=== PATIENT | male | born 1940 | race Caucasian/White ===

== ENCOUNTER 2022-05-30 14:56 | Outpatient (CLI) | payer MEDICARE, MEDICAID, OTHER ==
[~2022-05-30 14:56] MED LIST: ASPI-1265 PO; ATOR80TA PO; BENA10TA74 PO; CARV3.122 PO; CLOP75TA34 PO; CYAN-51 PO; DULO20CA50 PO; GABA300C PO; HYDR25TA5 PO; LANTUS SQ; MULT-1085 PO; MV-M1TAB19 PO; OMEG1CAP2 PO; PIOG15TA8 PO
== END 2022-05-30 23:59 | disposition home or self-care (01) ==
LOC: RAD 14:56
PROVIDERS: ATTEND Internal Medicine Cardiovascular Disease
DX: I08.8 Other rheumatic multiple valve diseases (principal); I25.10 Atherosclerotic heart disease of native coronary artery without angina pectoris
CPT/HCPCS: 93306

== ENCOUNTER 2025-02-15 08:53 | Inpatient (IN) | payer MEDICARE, MEDICAID ==
[~2025-02-15] VITALS: Ht 188 cm; Wt 93.0 kg
[~2025-02-15 08:53] MED LIST changes: +ATOR-429 PO; -ATOR80TA PO; +CYAN-104 PO; -CYAN-51 PO
--- NOTE | 2025-02-15 09:21 | ELECTROCARDIOGRAPH REPORT ---
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 CHRISTOPHER Yousif Measurements Intervals [place] Rate: 70 P: 259 WA: 217 QRS: 62 QRSD: 103 T: 83 QT: 438 QTc: 473 Interpretive Statements Sinus or ectopic atrial rhythm Supraventricular bigeminy Borderline prolonged WA interval Consider inferior infarct Electronically Signed On 02-17-2025 18:05:[address] CHRISTOPHER Yousif Please click the below link to view image of tracing.
[2025-02-15 09:34] LABS: MEAN PLATELET VOLUME 8.7 FL (7.4-10.4); RED CELL DISTRIBUTION WIDTH 16.1 % (11.5-14.5)
[2025-02-15 09:51] LABS: CREATININE 1.68 MG/DL (0.60-1.10); PRO BRAIN NATRIURETIC PEPTIDE 211 PG/ML (0-450); TOTAL CARBON DIOXIDE 32.2 MMOL/L (24-32); eCRCL 38 ML/MIN; eGFR 39 ML/MIN
--- NOTE | 2025-02-15 09:51 | RADIOLOGY REPORT ---
DI CHEST,SINGLE VIEW, HISTORY: CP COMPARISON: None None TECHNICAL DATA: 1 view of the chest was obtained. FINDINGS: Lines and tubes: None Cardiomediastinal silhouette: normal Pulmonary vasculature: normal Lung expansion: normal Lung airspace: Mild left peripheral patchy airspace opacity, nonspecific. Lung interstitium: normal Pleura: normal Pneumothorax: no Bones: Unremarkable Other: no IMPRESSION: Mild left peripheral patchy airspace opacity, nonspecific.
--- NOTE | 2025-02-15 10:01 | Physician Documentation ---
Addendum CHIEF COMPLAINT/HPI: The patient is an 84-year-old male who resides at the [facility] with a history of diabetes, hypertension, hyperlipidemia, CAD (prior stenting) and carotid disease . He is an insulin-dependent diabetic (I take 45 units of insulin in the morning and 15 units at night.). This morning, he was found on the floor with a glucose level of 30. He was given sugar and recovered quickly. He did strike his head. He takes Plavix but no other blood thinners. Patient reports that his glucose levels were running high and he adjusted his morning insulin on February 07 from 40 units to 45 units. REVIEW OF SYSTEMS: Constitutional: Denies chills, fatigue, fever, weight gain or weight loss. HEENT: Denies hearing loss, sinus pressure or visual changes. Respiratory: Denies cough, shortness of breath or wheezing. Cardiovascular: Denies chest pain, pain while walking (claudication), edema or palpitations. Gastrointestinal: Denies abdominal pain, blood in stool, constipation, diarrhea, heartburn, loss of appetite, nausea or vomiting. Genitourinary: Denies painful urination (dysuria), excessive amount of urine (polyuria) or urinary frequency. Metabolic/Endocrine: Denies cold intolerance, heat intolerance, excessive thirst (polydipsia) or excessive hunger (polyphagia). Neurological: Denies dizziness, extremity numbness, extremity weakness, headaches, seizures or tremors. Psychiatric: Denies anxiety or depression. Integumentary: Denies breast discharge, breast lump, hives, mole change(s), rash or skin lesion. Musculoskeletal: Denies back pain, joint pain, joint swelling or neck pain. Hematologic: Denies easily bleeding, easily bruises, lymphedema or issues with blood clots. Immunologic: Denies food allergies or seasonal allergies. PHYSICAL EXAMINATION: Vitals and nursing note reviewed. Constitutional: General: Patient is awake, alert, oriented x 4 in no acute distress and well appearing. Speech is clear and lucid. Appearance: Normal appearance. Patient is not ill-appearing, toxic-appearing or diaphoretic. HENT: Head: Normocephalic, abrasion to forehead right of center. Mouth: Mucous membranes are moist. Pharynx: Oropharynx is clear. Eyes: General: No scleral icterus. Extraocular Movements: Extraocular movements intact. Pupils: Pupils are equal, round, and reactive to light. Neck: Supple, no Kernig or Brudzinski sign. Cardiovascular: Rate and Rhythm: Normal rate and regular rhythm. Heart sounds: No murmur heard. Pulmonary: Effort: No respiratory distress. Breath sounds: No wheezing, rhonchi or rales. Abdominal: General: There is no distension. Palpations: There is no fluid wave, hepatomegaly or mass. Tenderness: There is no abdominal tenderness. There is no guarding. Musculoskeletal: General: No swelling or deformity. Skin: Coloration: Skin is not jaundiced. Findings: No erythema or rash. Neurological: Mental Status: Patient is alert. MEDICAL DECISION MAKING: This 84-year-old man adjusted his insulin nine days ago and became hypoglycemic this morning and sustained a ground level fall. CT scan of the head is negative for acute findings. CT scan of the chest indicates the possibility of a lung laceration. I discussed this with our surgeon on-call, Dr. Peterson, at 12:05 p.m. He indicated that these findings were clinically irrelevant if the patient does not have a hemothorax or pneumothorax. The patient's troponins are rising. I will get the patient admitted for his NSTEMI. Departure Disposition: ADMITTED INPATIENT Admitted to Inpatient Unit: to hospitalist Impression: Primary Impression: NSTEMI (non-ST elevated myocardial infarction) Additional Impressions: Hypoglycemia Ground-level fall Condition: Stable AMBROCIO BRYANT MD Feb 15, 2025 10:01
--- NOTE | 2025-02-15 11:11 | RADIOLOGY REPORT ---
CLINICAL INFORMATION: 84 years old, Male; Trauma. TECHNIQUE: Axial imaging was obtained through the brain without contrast. Coronal and sagittal reformatted images were obtained, reviewed, and stored. Images were reviewed in brain and bone windows. All CT scans at this medical facility are performed using dose modulation techniques as appropriate to a performed exam including the following: Automated exposure control was utilized; adjustment of the MA and/or KV according to patient size; and use of iterative reconstruction technique. CTDIvol = 65.96 mGy DLP = 1208.54 mGy-cm COMPARISON: None FINDINGS: There is no acute intracranial hemorrhage. No mass effect or midline shift. The ventricles and sulci are within normal limits in size for age. Basal cisterns are patent. The calvarium is unremarkable. Small fluid level in the left maxillary sinus. Mastoid air cells are clear. IMPRESSION: No CT evidence of acute intracranial abnormality.
--- NOTE | 2025-02-15 11:41 | RADIOLOGY REPORT ---
CLINICAL INFORMATION: Fall injury. TECHNIQUE: Axial CT imaging of the chest was performed without IV contrast. Sagittal and coronal reformatted images were made, stored and reviewed. Evaluation is limited without IV contrast. One or more of the following dose reduction techniques were used: Automated exposure control. Adjustment of mA and/or kV according to patient size. CTDIvol = 14.28, 14.83, 0.14 mGy DLP = 772.2 mGy-cm COMPARISON: Same day chest radiograph. FINDINGS: Aorta: Moderate atherosclerotic calcification. No thoracic aortic aneurysm. Cardiac: Heart size is within normal limits. Dense coronary artery calcification. Trace pericardial fluid. Mediastinum/albin: Nonspecific circumferential thickening of the wall of the distal esophagus. There is gas visualized within the lumen of the thoracic esophagus. Lungs: Ground-glass opacities are seen bilaterally, most prominent involving the upper lobes, left lingula, and right middle lobe, may be contusions in the setting of trauma. Possible small laceration along the lateral aspect of the left upper lobe adjacent to the left anterolateral 4th rib (series 2, image 44) with associated locules of gas. Small area of ground-glass attenuation in the anterior aspect of the left lower lobe. Pulmonary arteries: No gross abnormality. Chest wall: No mass or other abnormality. Upper abdomen: Visualized structures in the upper abdomen are unremarkable. Bones: No acute fracture or suspicious intraosseous lesions. IMPRESSION: 1. Bilateral ground-glass opacities, possible contusions in the setting of trauma. Correlate with clinical findings. Infectious or inflammatory etiology could also have a similar appearance in the appropriate clinical setting. 2. Suspected pulmonary laceration in the left upper lobe adjacent to the left anterolateral 4th rib. 3. Additional nonacute findings as described above.
--- NOTE | 2025-02-15 11:41 | RADIOLOGY REPORT ---
CLINICAL HISTORY: Trauma TECHNIQUE: CT exam of the cervical spine was performed without intravenous contrast. This exam was performed according to our departmental dose optimization program. Up-to-date CT equipment and radiation dose reduction techniques are utilized as appropriate. CTDI: 20.31 DLP: 541.08 WID: COMPARISON: None FINDINGS: Straightening of the cervical lordosis. Grade 1 anterolisthesis at C2-C3. There is otherwise normal cervical alignment. The vertebral body heights are maintained. No acute cervical fracture or subluxation is identified. There is multilevel mild cervical spondylosis with multilevel osteophyte formation. There is multilevel facet and uncovertebral hypertrophy, though without high-grade neural foraminal stenosis. No high-grade spinal stenosis. No significant central or neural foraminal narrowing is identified. The posterior paraspinous soft tissues are unremarkable. The lung apices are clear. Biapical pleural-parenchymal scarring. There is centrilobular emphysema in the lung apices. Calcified plaque in the bilateral carotid bifurcations, greater on the right. IMPRESSION: 1. No acute fracture or traumatic malalignment. 2. No high-grade neural foraminal or spinal stenosis. 3. Centrilobular emphysema in the lung apices.
[2025-02-15] MEDS ORDERED: potassium Cl 20 mEq SR tablet PO PRN ×2 (13:10)
[2025-02-15] MEDS ORDERED: magnesium sulf-water 4G/100mL 100 ML IV PRN (13:10)
[2025-02-15] MEDS ORDERED: HYDROcodone/acetaminophen 10/325mg tab PO PRN (13:10)
[2025-02-15] MEDS ORDERED: magnesium Cl slow-release 64mg tablet PO PRN (13:10)
[2025-02-15] MEDS ORDERED: mag hydrox/Alum hydrox/simeth 30ml oral suspension PO PRN (13:10)
[2025-02-15] MEDS ORDERED: potassium Cl 40MEQ/1/2NS 520ml 520 ML IV PRN (13:10)
[2025-02-15] MEDS ORDERED: magnesium hydroxide 30ml (MOM) UD suspension PO PRN (13:10)
[2025-02-15] MEDS ORDERED: magnesium sulf-water 2g/50mL 50 ML IV PRN (13:10)
[2025-02-15] MEDS ORDERED: ondansetron/PF 4mg/2ml inj IV PRN (13:10)
[2025-02-15] MEDS ORDERED: DEXTROSE 15 GM of carb/4 tabs (each vial/BOTTLE has 4 tablets) PO PRN ×2 (14:40)
[2025-02-15] MEDS ORDERED: dextrose 50%-water 50ml dispensing syringe IV PRN ×2 (14:40)
[2025-02-15] MEDS ORDERED: glucagon, human recombinant 1mg kit SUBCUT PRN (14:40)
--- NOTE | 2025-02-15 14:49 | HISTORY AND PHYSICAL-Residence ---
History & Physical Providers to CC Resident Creating Document: THOMASSONALAncaGEN, STEVO ~ History of Present Illness Reason for Admit\Complaint: Hypoglycemia History of Present Illness This is an 84-year-old male residing at the [facility] ,with past medical history of type 2 diabetes mellitus, hypertension, hyperlipidemia, CAD s/p stent placement in 2019 presented to the ED with low glucose levels. Patient reports that he has a glucose monitor that checks his glucose levels, it went off this morning at around 6:30 a.m. patient then immediately had a bowl of cereal with milk and a glass of apple juice. Patient reports that he does not remember what happened afterwards, the next thing he remembers when he gained back his consciousness he was in the ED. Patient says that he recently got his insulin dose adjusted by his PCP 2 weeks ago, was taking long-lasting insulin 40 units at 6:00 a.m. and 15 units in the evening and recently changed it to 45 units at 6:00 a.m. According to the ER physician, patient had a ground level fall this morning, hit his head, and was found on the floor with a glucose level of 30. He was given sugar and recovered quickly. Patient says the this is the 1st episode he has ever experienced of this kind. Patient reports taking Plavix but no other blood thinners. He denies any other complaints of chest pain, shortness of breath, palpitations, dizziness, nausea vomiting, abdominal pain, burning micturition. Allergies: Coded Allergies: No Known Allergies (Unverified , 11/19/19) Home Medications Home Medications Active Aspirin 81 Mg Tab.chew 162 Mg PO DAILY 90 Days Clopidogrel (Clopidogrel Bisulfate) 75 Mg Tablet 75 Mg PO DAILY 90 Days Do not stop medication unless instructed by prescriber. Reported Cymbalta* (Duloxetine HCl) 20 Mg Capsule. 1 Cap PO DAILY Lantus* (Insulin Glargine) 100 Unit/1 Ml Vial 20 Units SQ HS Fish Oil 1,000 mg Capsule ([place]-3 Fatty Acids/Fish Oil) 1 Each Capsule 1 Cap PO DAILY Carvedilol 3.125 Mg Tablet 1 Tab PO Q12H Lotensin* (Benazepril HCl) 10 Mg Tablet 1 Tab PO DAILY Hydrochlorothiazide 25 Mg Tab 1 Tab PO DAILY Lipitor* (Atorvastatin Calcium) 80 Mg Tablet 1 Tablet PO HS Actos* (Pioglitazone HCl) 15 Mg Tablet 1 Tab PO DAILY Neurontin (Gabapentin) 300 Mg Capsule 2 Cap PO Q8H Multi Vitamin Daily (Multivitamin) 1 Each Tablet 1 Tab PO DAILY Vitamin D3 Complete Caplet (Mv-Mn/Iron/Fa/Herbal Cmplx#190) 1 Each Tablet 1 Each PO DAILY Vitamin B-12 (Cyanocobalamin) 1,000 Mcg Tablet 1 Tab PO DAILY Past Medical History Past Medical History Hypertension Type 2 diabetes mellitus Hyperlipidemia Past Surgical History Surgical History Comment Coronary artery disease s/p stent placement in 2019 Peripheral artery disease s/p stent placement in lower extremities. Past Social History Social History Comment Patient quit smoking in 2000. 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 ROS ROS Constitutional: No fever, dizziness, no weakness, no decrease in appetite HEENT: Normal vision. No sore throat, epistaxis, tinnitus Cardiovascular: No chest pain/discomfort, palpitations, syncope. no pedal edema Respiratory: No shortness of breath, no cough, no hemoptysis Gastrointestinal: No abdominal pain, nausea, vomiting. No diarrhea, melena. Genitourinary: No frquency, urgency, incontinence, nocturia. No dysuria, hematuria Endocrine: No fatigue, polydipsia, polyuria. No heat or cold intolerance Neurologic: No headache, vertigo. No weakness, numbness or tingling of extremities Psychiatric: No hallucinations/delusions, no anhedonia, no suicidal ideation Exam Vitals: Vital Signs Date Time Temp Pulse Resp B/P (MAP) Pulse Ox O2 Delivery O2 Flow Rate FiO2 02/15/25 13:33 95.5 71 19 175/62 (99) 90 General: General: Awake, alert, oriented to time , place, person HEENT: Laceration present on the right side of the forehead, normocephalic, pupils equal, extraocular muscles intact, sclerae anicteric,mucus membranes dry, oropharynx is clear, no stridor. Neck: supple, full active range of motion, trachea midline, no thyromegaly, no lymphadenopathy, no JVD. Cardiovascular system: regular rate/rhythm. No murmurs, gallops. Pulses are 2+ in all extremities and symmetric. Chest/respiratory system: Nonlabored, good air movement ,no respiratory distress, clear to auscultation bilaterally, no wheezing, no ronchi, no rales, no accessory muscle use. Gastrointestinal: Soft, non-tender, non-distended, normal active bowel sounds, no organomegaly, no pulsatile masses, no CVA tenderness. Neurological: Lucid with normal mental status. Normal facial symmetry. Moves all extremities symmetrically and with purpose. No truncal ataxia. Speech is fluid without evidence of dysarthria or aphasia, no focal deficits appreciated. Extremities: warm, well-perfused, no cyanosis, no clubbing. Skin: warm, dry, no rashes, laceration present on the left forearm and right forehead Psychiatric: Normal affect, normal insight, normal concentration Diagnostic Data Last Recorded Lab Results: 02/15/2592102/15/25921 Advance Care Planning Advanced Care plannin - 30 Minutes (full code) Additional Plan Syncope Due to Acute hypoglycemia Patient had ground level mechanical fall, lost consciousness. CT head - No CT evidence of acute intracranial abnormality. Initial blood sugar levels- 30, sugar levels on arrival to the ED 102. HbA1c - 8.6 Electrolytes normal Hypoglycemia/hyperglycemia protocol in place. Patient started on low-dose sliding scale. Type 2 AR Likely due to underlying hypoglycemia Patient has increased troponins of 155, 451, 488 BNP ordered follow up. Patient denies any complaints of chest pain, palpitations, headache. EKG shows sinus rhythm with no acute ST elevation, depression, T-wave changes. 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 BERTO on chronic kidney disease stage III Likely due to dehydration Patient's baseline creatinine- 1.39 Currently creatinine is- 1.68, BUN-33 Patient on NS 75 cc/hour. Urine lytes ordered. We will follow-up Hypertension- Current blood pressures- 175/62 We will continue blood pressure medications once med rec is done. Hyperlipidemia- Lipid panel ordered. Follow-up Started patient on atorvastatin 80 mg CAD s/p stent placement in 2019- Patient had [address] Yousif. Currently on Plavix Code Status: Full code DVT Prophylaxis: Plavix Lines/Tubes: PIV Nutrition: Regular PT:yes Prognosis: Guarded Resident MD attestation- Patient was seen, examined and discussed with the attending MD . Gen Ceron PGY-1 Date of Service: Feb 15, 2025 Billing Provider: ADRIAN SELLERS MD Common Visit Codes: 14283-UEOSBBR INP/OBS CARE (HIGH) Secondary Visit Codes: 51070-LQSOTUPR CARE PLAN 30 MINUTES GEN CERON, RES Feb 15, 2025 14:49 ADRIAN SELLERS MD Feb 17, 2025 06:24
[2025-02-15 15:22] LABS: LEUKOCYTE ESTERASE ,URINE SMALL (Neg); NITRITES, URINE POSITIVE (Neg); OCCULT BLOOD,URINE SMALL (Neg)
[2025-02-15 15:30] LABS: UA COLLECTION TYPE CLN CATCH MIDSTREAM
[2025-02-15 15:32] LABS: MUCUS STRANDS FEW /LPF (Neg); SQUAMOUS EPITHELIAL CELL,UR FEW /LPF (FEW)
[2025-02-15] MEDS: normal saline 1000ml 1,000 ML IV SCH (16:36)
[2025-02-15] MEDS: INSULIN LISPRO 100 UNIT/ML INSULN.PEN MULTI-DOSE SQ SCH (17:00)
[2025-02-15] MEDS: HALLS - SOOTHE MENTHOL 1.8 MG cough drop LOZENGE MM PRN (18:20)
[2025-02-15 19:00] VITALS: BP 104/57; PULSE 87; RESP 15; TEMP 97.5; O2SAT 97
[2025-02-15] MEDS ORDERED: morphine 4 MG/ML inj SYRINge IV PRN (19:42)
[2025-02-15] MEDS: K and/or MAG REPLACEMENT MC SCH (20:00)
[2025-02-15] MEDS: docusate sod 100mg capsule PO SCH (20:00)
[2025-02-15] MEDS: heparin, porcine 5000 units/ml vial SQ SCH (21:09)
[2025-02-16 02:00] VITALS: BP 134/44; PULSE 75; RESP 23; TEMP 98.8; O2SAT 91
[2025-02-16] MEDS: insulin glargine (Lantus) pen - multi-dose SQ SCH ×2 (02:31→08:00)
[2025-02-16] MEDS ORDERED: ALLO100T PO (02:57)
[2025-02-16] MEDS ORDERED: FURO40TA4 PO (03:11)
[2025-02-16] MEDS ORDERED: FINA5TAB11 PO (03:11)
[2025-02-16] MEDS ORDERED: EMPA10TA PO (03:11)
[2025-02-16 06:00] VITALS: BP 126/44; PULSE 76; RESP 21; TEMP 97.3; O2SAT 94
[2025-02-16 06:39] LABS: MEAN PLATELET VOLUME 9.2 FL (7.4-10.4); RED CELL DISTRIBUTION WIDTH 16.4 % (11.5-14.5)
[2025-02-16 07:11] LABS: CHOL/HDL RATIO 2.1 (0.00-4.99); CREATININE 1.69 MG/DL (0.60-1.10); LDL CHOLESTEROL 42 MG/DL (50-100); PRO BRAIN NATRIURETIC PEPTIDE 1643 PG/ML (0-450); TOTAL CARBON DIOXIDE 31.0 MMOL/L (24-32); eCRCL 38 ML/MIN; eGFR 39 ML/MIN
[2025-02-16 10:00] VITALS: BP 140/44; PULSE 77; RESP 16; TEMP 97.8; O2SAT 95
[2025-02-16] MEDS: HYDROcodone/acetaminophen 5mg/325mg tablet PO PRN (10:58)
--- NOTE | 2025-02-16 11:51 | CONSULTATION REPORT - RESIDENT ---
Consult Providers to CC Resident Creating Document: KARTHIK NARANJO, RES CC: BUDDY HERNANDES MD History of Present Illness Reason for Admit\Complaint: Syncope History of Present Illness An 84-year-old male patient with PMH of type 2 DM, HTN, HLD presented to the ED in view of low glucose levels. Patient has a glucometer at home that monitor his blood sugars. Patient's blood sugars dropped down to ? At around 6:30 a.m. on the day of admission. Patient and immediately consumed a bowel of cereal with milk and a glass of apple juice. Patient lost consciousness and sustained a ground level fall. Patient does not remember what happened prior to the fall. By the time he woke up, patient was in the ED. Reportedly, patient has taken around 45 units of long-acting insulin at 6:00 a.m which was recently changed two weeks ago by his PCP from 40 units that he usually takes. Patient's blood glucose was 30 at the time of fall. Patient denies chest pain, palpitations. Patient denies prior similar episodes. Patient sees Dr. Hernandes as outpatient. Patient's troponins initially were up trending with the last value going in the wrong direction. Patient underwent recent echo in December and stress test in January. Allergies: Coded Allergies: No Known Allergies (Unverified , 11/19/19) Home Medications Home Medications Active Clopidogrel (Clopidogrel Bisulfate) 75 Mg Tablet 75 Mg PO DAILY 90 Days Do not stop medication unless instructed by prescriber. Reported Furosemide 40 Mg Tablet 1 Tab PO DAILY Finasteride 5 Mg Tablet 1 Tab PO DAILY Jardiance (Empagliflozin) 10 Mg Tablet 1 Tab PO DAILY Zyloprim* (Allopurinol) 100 Mg Tablet 2 Tab PO DAILY Cymbalta* (Duloxetine HCl) 20 Mg Capsule. 1 Cap PO DAILY Lantus* (Insulin Glargine) 100 Unit/1 Ml Vial 20 Units SQ HS Carvedilol 3.125 Mg Tablet 1 Tab PO Q12H Lipitor* (Atorvastatin Calcium) 80 Mg Tablet 1 Tablet PO HS Actos* (Pioglitazone HCl) 15 Mg Tablet 1 Tab PO DAILY Neurontin (Gabapentin) 300 Mg Capsule 2 Cap PO Q8H Vitamin D3 Complete Caplet (Mv-Mn/Iron/Fa/Herbal Cmplx#190) 1 Each Tablet 1 Each PO DAILY Vitamin B-12 (Cyanocobalamin) 1,000 Mcg Tablet 1 Tab PO DAILY Past Medical History Past Medical History Hypertension Type 2 diabetes mellitus Hyperlipidemia CAD status post stent in 2019 Past Surgical History Surgical History Comment Cardiac catheterization status post stent placement in 2019 Peripheral arterial disease status post stent placement Past Social History Social History Comment Quit smoking in 2000, smoked two packs of cigarettes for 40 years Occasional alcohol consumption (mostly beer) Denies illicit drug use ROS ROS All other systems reviewed in full and negative except for the pertinent positives mentioned in HPI Exam Vitals: Vital Signs Date Time Temp Pulse Resp B/P (MAP) Pulse Ox O2 Delivery O2 Flow Rate FiO2 02/16/25 10:58 17 02/16/25 06:00 97.3 76 126/44 (71) 94 Room Air 02/15/25 18:14 0 General: General: Alert, awake, oriented, not in acute distress HEENT: PERRLA, no icterus, pallor, lymphadenopathy, carotid bruit Respiratory system: Bilateral vesicular breath sounds heard, no adventitious breath sounds CVS: S1-S2 heard, no murmurs/rubs/gallop GI: Soft, nontender, no organomegaly, no guarding/rigidity, bowel sounds present Neuro: No focal neurological deficits present Mental status exam: alert and consciousness, orientation, memory, speech - Cranial nerve test: Cranial nerves 2-12 intact - Motor system: Nutrition, Tone 3+, Power 5/5, no involuntary movements - Sensory system: Intact - Reflex testing: Biceps, triceps and knee reflexes 2+ - Cerebellar: Normal Extremities: No edema cyanosis clubbing/deformities Skin: A big bruise present in the right frontal region, Warm and dry Diagnostic Data Last Recorded Lab Results: 02/16/2551602/16/25 0517 Additional Plan Assessment: An 84-year-old female with PMH of CKD, diabetes mellitus type 2 presented to the ED in view of loss of consciousness and fall. Patient had low blood glucose measurements at home. Patient is admitted for the evaluation management of syncope secondary to acute hypoglycemia. Teletray Operator consulted in view of mildly elevated troponins. Plan: Syncope secondary to acute hypoglycemia Management per hospitalist team Mild Troponinemia 2/2 type 2 VT Initially troponins trended upwards, started to downtrend Most likely secondary to acute hypoglycemia HTN Continue home med HLD Continue home meds CAD status post stent placement Continue Plavix and optimization GDMT Code status: Full code Diet: Heart healthy DVT prophylaxis: SCD Disposition: Cardiology team we will continue to follow up with the patient, patient can be discharged per the hospitalist team Karthik Naranjo MD Internal Medicine, PGY 2 Sepsis Screening Reassessment Date: Feb 16, 2025 Date of Service: Feb 16, 2025 Billing Provider: BUDDY HERNANDES MD, SIVA, RES Feb 16, 2025 11:51 BUDDY HERNANDES MD Feb 16, 2025 16:41
[2025-02-16 15:00] VITALS: BP 144/41; PULSE 70; RESP 19; TEMP 97.8; O2SAT 94
[2025-02-16] MEDS ORDERED: CEFD300C3 PO (15:08)
--- NOTE | 2025-02-16 16:23 | DISCHARGE SUMMARY-Residence ---
Discharge Summary Providers to CC Resident Creating Document: GEN CERON RES ~ Discharge Summary Admission Diagnosis: [facility] Hospital Course DATE OF ADMISSION: 02/15/25 DATE OF DISCHARGE: 02/16/25 Imaging- Chest CT- 1. Bilateral ground-glass opacities, possible contusions in the setting of trauma. Correlate with clinical findings. Infectious or inflammatory etiology could also have a similar appearance in the appropriate clinical setting. 2. Suspected pulmonary laceration in the left upper lobe adjacent to the left anterolateral 4th rib. Chest x-ray- Mild left peripheral patchy airspace opacity, nonspecific. Cervical spine CT- 1. No acute fracture or traumatic malalignment. 2. No high-grade neural foraminal or spinal stenosis. 3. Centrilobular emphysema in the lung apices. Head CT- No CT evidence of acute intracranial abnormality. Discharge Diagnosis\Comment: Syncope Due to Acute hypoglycemia Type 2 GA due to underlying hypoglycemia BERTO on chronic kidney disease stage III due to dehydration Hypertension Hyperlipidemia CAD s/p stent placement in 2019 NSTEMI ruled out Operations\Procedures: None Consultants: Cardiology Complications: None Condition on DC: Stable New Medications: Cefdinir* (Cefdinir*) 300 Mg Capsule 1 CAP PO Q12H for 5 Days, #10 CAP Changed Medications: Insulin Glargine,Hum.rec.anlog* (Lantus*) 100 Unit/1 Ml Vial 10 UNITS SQ HS, VIAL (Changed from: 20 UNITS) Continued Medications: Allopurinol* (Zyloprim*) 100 Mg Tablet 2 TAB PO DAILY for pain Atorvastatin Calcium* (Lipitor*) 80 Mg Tablet 1 TABLET PO HS, TABLET Carvedilol (Carvedilol) 3.125 Mg Tablet 1 TAB PO Q12H, TAB Clopidogrel Bisulfate (Clopidogrel) 75 Mg Tablet 75 MG PO DAILY for 90 Days, #90 TAB Do not stop medication unless instructed by prescriber. Cyanocobalamin (Vitamin B-12) 1,000 Mcg Tablet 1 TAB PO DAILY, TAB 0 Refills Duloxetine Hcl* (Cymbalta*) 20 Mg Capsule.dr 1 CAP PO DAILY, CAP Empagliflozin (Jardiance) 10 Mg Tablet 1 TAB PO DAILY Finasteride (Finasteride) 5 Mg Tablet 1 TAB PO DAILY Furosemide (Furosemide) 40 Mg Tablet 1 TAB PO DAILY Gabapentin (Neurontin) 300 Mg Capsule 2 CAP PO Q8H, CAP Mv-Mn/Iron/Fa/Herbal Cmplx#190 (Vitamin D3 Complete Caplet) 1 Each Tablet 1 EACH PO DAILY, TAB Pioglitazone Hcl* (Actos*) 15 Mg Tablet 1 TAB PO DAILY, TAB Discharge Summary: Reason for admission: This patient is an 84 year old male patient brought to the ED by the EMS after he was found on the floor with a glucose level of 30. He was given sugar and he recovered quickly. On further history the patient states that his glucose monitor went off at around 6:30 a.m. in the morning and he immediately to bowl of cereal with milk and a glass of apple juice. After regained his consciousness he was in the ED . The patient said that this is the 1st episode he had this kind of hypoglycemia where he lost his consciousness and had a syncope. The patient states that his insulin dose was readjusted by the PCP, two weeks ago, his morning 6 a m dose was readjusted from 40-45 units and evening dose was continue the same at 15 units. Patient reports taking Plavix but no other blood thinners. He denies any other complaints of chest pain shortness of breath, palpitation, dizziness, nausea vomiting, abdominal pain and burning micturition. He was admitted for further investigation. Hospital course: This is an 84-year-old male residing at the [facility] ,with past medical history of type 2 diabetes mellitus, hypertension, CKD, hyperlipidemia, CAD s/p stent placement in 2019. Now patient was evaluated for a hypoglycemic syncopal episode which led to fall. Noncontrast CT of the head showed no abnormality or evidence of intracranial hemorrhage. His blood glucose was normal and HbA1c was 8.6, electrolytes were normal and patient was started on low-dose sliding scale insulin. His kidney function shows creatinine of 1.68 patient's baseline was 1.39 in the EGFR was 39 , we suspected BERTO and patient was started on 75 cc per/hour of normal saline, urine analysis and urine electrolytes were ordered. We will continue patient's blood pressure medications. Initial blood workup showed troponin of 150 and NT proBNP of 220. Now in PCU his blood workup showed troponin of 451 and nt-proBNP of 1643 we suspected type 2 GA because of hypoglycemia. Cardiology was further consulted. Cardiology said patient was seen in the outpatient clinic 2 weeks ago and had normal echo and stress test. Today morning his blood test showed creatinine of 1.69 and blood glucose was normal and his WBCs were elevated and urine analysis showed WBCs and nitrites positive and leukocyte esterase positive. He was suspected to have a UTI and patient was put on cefdinir tablets. His recovery was sooner than expected, we planned to discharge the patient and counseled him regarding insulin dosage and CKD. The patient was discharged. Vital Signs Date Time Temp Pulse Resp B/P (MAP) Pulse Ox O2 Delivery O2 Flow Rate FiO2 02/16/25 15:00 97.8 70 19 144/41 (75) 94 Room Air 02/15/25 18:14 0 Laboratory Tests Test 02/15/25 09:22 02/15/25 09:33 02/15/25 11:03 02/15/25 11:54 White Blood Count 11.0 X10'3 Red Blood Count 5.06 X10'6 Hemoglobin 15.2 g/dl Hematocrit 46.3 % Mean Corpuscular Volume 91.4 FL Mean Corpuscular Hemoglobin 29.9 PG Mean Corpuscular Hemoglobin Concent 32.8 g/dL Red Cell Distribution Width 16.1 % Platelet Count 229 X10'3 Mean Platelet Volume 8.7 FL Neutrophils (%) (Auto) 72.6 % Lymphocytes (%) (Auto) 22.8 % Monocytes (%) (Auto) 3.6 % Eosinophils (%) (Auto) 0.7 % Basophils (%) (Auto) 0.3 % Neutrophils # (Auto) 8.0 X10'3 Lymphocytes # (Auto) 2.5 X10'3 Monocytes # (Auto) 0.4 X10'3 Eosinophils # (Auto) 0.1 X10'3 Basophils # (Auto) 0.0 X10'3 CBC Comment Sodium Level 144 MMOL/L Potassium Level 3.6 MMOL/L Chloride Level 104 MMOL/L Carbon Dioxide Level 32.2 MMOL/L Anion Gap 8 Blood Urea Nitrogen 33 MG/DL Creatinine 1.68 MG/DL Estimated GFR/1.73 m2 39 ML/MIN BUN/Creatinine Ratio 19.6 Glucose Level 102 MG/DL Hemoglobin A1c 8.6 % Calcium Level 8.8 MG/DL Magnesium Level 2.6 MG/DL Troponin I High Sensitivity 155 ng/L 451 ng/L 488 ng/L Pro-B-Type Natriuretic Peptide 211 PG/ML Albumin 3.7 G/DL Chemistry Comments Glucometer 105 mg/dl Troponin I High Sens Percent Delta 190 % 8 % Troponin I Hi Sens Absolute Change 296 ng/L 37 ng/L Test 02/15/25 14:31 02/15/25 17:17 02/15/25 21:04 02/16/25 05:17 Urine Specimen Description Cln catch midstream Urine Color Yellow Urine Clarity Slightly cloudy Urine pH 6.0 Urine Specific [place] 1.020 Urine Protein 100 mg/dl Urine Glucose (UA) >=1000 mg/dl Urine Ketones Negative mg/dl Urine Occult Blood Small Urine Nitrite Positive Urine Bilirubin Negative Urine Urobilinogen 0.2 E.U/dL Urine Leukocyte Esterase Small Urine RBC 0-2 /HPF Urine WBC 50-100 /HPF Urine Squamous Epithelial Cells Few /LPF Urine Bacteria 1+ /HPF Urine Mucus Few /LPF Urine Culture Indicated Indicated Volume Urine Centrifuged 10 ml Urine Comment Glucometer 147 mg/dl 246 mg/dl White Blood Count 15.7 X10'3 Red Blood Count 4.46 X10'6 Hemoglobin 13.4 g/dl Hematocrit 40.5 % Mean Corpuscular Volume 90.8 FL Mean Corpuscular Hemoglobin 30.1 PG Mean Corpuscular Hemoglobin Concent 33.1 g/dL Red Cell Distribution Width 16.4 % Platelet Count 187 X10'3 Mean Platelet Volume 9.2 FL Neutrophils (%) (Auto) 78.1 % Lymphocytes (%) (Auto) 14.0 % Monocytes (%) (Auto) 7.5 % Eosinophils (%) (Auto) 0.2 % Basophils (%) (Auto) 0.2 % Neutrophils # (Auto) 12.3 X10'3 Lymphocytes # (Auto) 2.2 X10'3 Monocytes # (Auto) 1.2 X10'3 Eosinophils # (Auto) 0.0 X10'3 Basophils # (Auto) 0.0 X10'3 CBC Comment Sodium Level 140 MMOL/L Potassium Level 4.6 MMOL/L Chloride Level 104 MMOL/L Carbon Dioxide Level 31.0 MMOL/L Anion Gap 5 Blood Urea Nitrogen 35 MG/DL Creatinine 1.69 MG/DL Estimated GFR/1.73 m2 39 ML/MIN BUN/Creatinine Ratio 20.7 Glucose Level 165 MG/DL Calcium Level 8.6 MG/DL Magnesium Level 2.1 MG/DL Total Bilirubin 0.7 MG/DL Aspartate Amino Transf (AST/SGOT) 40 U/L Alanine Aminotransferase (ALT/SGPT) 18 U/L Alkaline Phosphatase 84 IU/L Pro-B-Type Natriuretic Peptide 1643 PG/ML Total Protein 6.0 G/DL Albumin 3.1 G/DL Globulin 2.9 G/DL Albumin/Globulin Ratio 1.1 Triglycerides Level 105 MG/DL Cholesterol Level 116 MG/DL LDL Cholesterol 42 MG/DL HDL Cholesterol 54 MG/DL Cholesterol/HDL Ratio 2.1 Chemistry Comments Test 02/16/25 05:21 02/16/25 07:59 02/16/25 08:49 02/16/25 12:52 Troponin I High Sensitivity 424 ng/L Troponin I High Sens Percent Delta 13 % Troponin I Hi Sens Absolute Change -64 ng/L Glucometer 140 mg/dl 175 mg/dl Lactic Acid Level 1.5 MMOL/L Examination at the time of discharge- General: Awake, alert, oriented to time , place, person HEENT: Laceration present on the right side of the forehead, normocephalic, pupils equal, extraocular muscles intact, sclerae anicteric,mucus membranes moist, oropharynx is clear, no stridor. Neck: supple, full active range of motion, trachea midline, no thyromegaly, no lymphadenopathy, no JVD. Cardiovascular system: regular rate/rhythm. No murmurs, gallops. Pulses are 2+ in all extremities and symmetric. Chest/respiratory system: Nonlabored, good air movement ,no respiratory distress, clear to auscultation bilaterally, no wheezing, no ronchi, no rales, no accessory muscle use. Gastrointestinal: Soft, non-tender, non-distended, normal active bowel sounds, no organomegaly, no pulsatile masses, no CVA tenderness. Neurological: Lucid with normal mental status. Normal facial symmetry. Moves all extremities symmetrically and with purpose. No truncal ataxia. Speech is fluid without evidence of dysarthria or aphasia, no focal deficits appreciated. Extremities: warm, well-perfused, no cyanosis, no clubbing. Skin: warm, dry, no rashes, laceration present on the left forearm and right forehead Psychiatric: Normal affect, normal insight, normal concentration Discharge medications- New Medications: Cefdinir* 300 Mg Capsule Changed Medications: Insulin Glargine,Hum.rec.anlog* (Lantus*) 100 Unit/1 Ml Vial Continued Medications: Allopurinol* (Zyloprim*) 100 Mg Tablet Atorvastatin Calcium* (Lipitor*) 80 Mg Tablet Carvedilol 3.125 Mg Tablet Clopidogrel Bisulfate (Clopidogrel) 75 Mg Tablet Do not stop medication unless instructed by prescriber. Cyanocobalamin (Vitamin B-12) 1,000 Mcg Tablet Duloxetine Hcl* (Cymbalta*) 20 Mg Capsule. Empagliflozin (Jardiance) 10 Mg Tablet Finasteride 5 Mg Tablet Furosemide 40 Mg Tablet Gabapentin (Neurontin) 300 Mg Capsule Mv-Mn/Iron/Fa/Herbal Cmplx#190 (Vitamin D3 Complete Caplet) 1 Each Tablet Pioglitazone Hcl* (Actos*) 15 Mg Tablet Instructions by the doctor at the time of discharge- Follow-up with your PCP in 1 week. We have decreased your Lantus dose nighttime to 10 units. Please adjust your morning insulin dose based on the glucose levels. 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 You currently have a UTI for which we are prescribing you antibiotic cefdinir to be taken for 5 days . *Problems/Diagnosis: (1) Hypoglycemia Status: Acute (2) Ground-level fall Status: Acute Total Time Spent on D/C: > 30 Minutes Addendum uti, poa Date of Service: Feb 16, 2025 Billing Provider: ADRIAN SELLERS MD Common Visit Codes: 43510-JHR/OBS DISCH DAY >30min GEN CERON, RES Feb 16, 2025 15:57 ADRIAN SELLERS MD Feb 17, 2025 06:26
== END 2025-02-16 16:21 | disposition home or self-care (01) | DRG 637 ==
LOC: ER 08:53 → ED HOLD 12:29 → PCU 3S 18:45
PROVIDERS: ADMIT Internal Medicine; ATTEND Internal Medicine
DX: E11.649 Type 2 diabetes mellitus with hypoglycemia without coma (principal); I21.A1 Myocardial infarction type 2; N39.0 Urinary tract infection, site not specified; N17.9 Acute kidney failure, unspecified; I12.9 Hypertensive chronic kidney disease with stage 1 through stage 4 chronic kidney disease, or unspecified chronic kidney disease; N18.30 Chronic kidney disease, stage 3 unspecified; E11.22 Type 2 diabetes mellitus with diabetic chronic kidney disease; E78.5 Hyperlipidemia, unspecified; E11.51 Type 2 diabetes mellitus with diabetic peripheral angiopathy without gangrene; E86.0 Dehydration; I25.10 Atherosclerotic heart disease of native coronary artery without angina pectoris; Z95.5 Presence of coronary angioplasty implant and graft; Z87.891 Personal history of nicotine dependence
CPT/HCPCS: 36415; 70450; 71045; 71250; 72125; 80048; 80053; 80061; 81001; 82948; 83036; 83605; 83735; 83880; 84484; 85025; 87040; 87077; 87081; 87088; 87186; 93005; 96360; 99285; A6258; A6402; A6446; G0378; J1644; J1815; J7030